=== PATIENT | female | born 1930 | race Caucasian/White ===

== ENCOUNTER 2019-12-14 10:16 | Observation (INO) ==
[2019-12-14] MEDS ORDERED: PANTOPRAZOLE 40 MG VIAL IV STA (10:33)
[2019-12-14 11:15] LABS: Basophils % 0.5 % (0.0-0.8); Eosinophils % 0.4 % (0.00-10.9); Hematocrit 33.3 VOL% (35.7-47.0); Hemoglobin 10.8 GM/DL (12.0-16.0); Immature Granulocytes % 0.4 %; Immature Granulocytes Absolute 0.03 #; Lymphocytes # 0.8 10*3/uL (1.4-4.0); Lymphocytes % 11.1 % (21.3-54.2); Mean Corpuscular HGB Conc 32.4 GM/DL (32-36); Mean Corpuscular Volume 90.7 FL (87-102); Mean Platelet Volume 11.4 FL (9.6-12.0); Monocytes % 6.7 % (1.7-12.7); Neutrophils % 80.9 % (38.7-73.9); Platelet Count 263 T/CUMM (130-400); Red Blood Count 3.67 MC/CUMM (3.8-5.5); Red Cell Distribution Width 12.7 % (9.3-17.3); White Blood Count 7.5 T/CUMM (4-12)
[2019-12-14 11:21] LABS: PT Patient Result 10.9 SECS (9.8-11.9)
[2019-12-14] MEDS ORDERED: LACTATED RINGERS 1,000 ML IV SCH (11:30)
[2019-12-14 11:55] LABS: Alanine Aminotransferase < 9 U/L (13-56); Albumin 3.6 G/DL (3.4-5.0); Alkaline Phosphatase 106 U/L (45-117); Aspartate Amino Transferase 12 U/L (0-37); Bilirubin,Total < 0.39 MG/DL (0.2-1.0); Blood Urea Nitrogen 29 MG/DL (7-18); Calcium 8.7 MG/DL (8.5-10.1); Estimated Glom Filtration Rate 38 ML/MIN; Glucose 95 MG/DL (74-106); Osmolality,Calculated 278.8 MOS/KG (273-304); Total Protein 6.7 G/DL (6.4-8.3)
[2019-12-14] MEDS ORDERED: DEXTROSE 50% 25 GM/50 ML VIAL IV PRN (12:05)
[2019-12-14] MEDS ORDERED: GLUCAGON 1 MG VIAL IM PRN (12:05)
[2019-12-14 15:07] LABS: Hematocrit 35.1 VOL% (35.7-47.0); Hemoglobin 11.2 GM/DL (12.0-16.0)
[2019-12-14] MEDS: SODIUM CHLORIDE 0.9% 1,000 ML IV SCH (15:29)
[2019-12-14 18:35] LABS: Hematocrit 32.3 VOL% (35.7-47.0); Hemoglobin 10.6 GM/DL (12.0-16.0)
[2019-12-14] MEDS: PANTOPRAZOLE 40 MG VIAL IV SCH (21:03)
[2019-12-15 00:40] LABS: Hematocrit 31.5 VOL% (35.7-47.0); Hemoglobin 10.1 GM/DL (12.0-16.0)
[2019-12-15 01:05] LABS: Calcium 8.2 MG/DL (8.5-10.1); Osmolality,Calculated 279.5 MOS/KG (273-304)
[2019-12-15 01:11] LABS: % Iron Saturation 11.2 % (18-50); Ferritin 20.4 ng/ml (8-252)
[2019-12-15] MEDS: traZODone 50 MG TABLET PO SCH ×2 (01:14→20:50)
[2019-12-15 05:50] LABS: Basophils % 0.6 % (0.0-0.8); Eosinophils # 0.1 10*3/uL (0.0-0.87); Eosinophils % 1.3 % (0.00-10.9); Hematocrit 31.7 VOL% (35.7-47.0); Immature Granulocytes % 0.2 %; Immature Granulocytes Absolute 0.01 #; Lymphocytes # 1.1 10*3/uL (1.4-4.0); Lymphocytes % 20.6 % (21.3-54.2); Mean Corpuscular HGB Conc 31.5 GM/DL (32-36); Mean Corpuscular Volume 91.9 FL (87-102); Mean Platelet Volume 11.2 FL (9.6-12.0); Monocytes % 7.8 % (1.7-12.7); Neutrophils % 69.5 % (38.7-73.9); Platelet Count 216 T/CUMM (130-400); Red Blood Count 3.45 MC/CUMM (3.8-5.5); Red Cell Distribution Width 12.8 % (9.3-17.3); White Blood Count 5.2 T/CUMM (4-12)
[2019-12-15] MEDS ORDERED: ALBUTEROL/IPRATROPIUM 3 ML NEB RESP TX PRN (07:11)
[2019-12-15] MEDS ORDERED: NITROGLYCERIN SL 0.4 MG TABLET SL PRN (07:11)
[2019-12-15 07:23] LABS: Hematocrit 33.8 VOL% (35.7-47.0); Hemoglobin 10.8 GM/DL (12.0-16.0)
[2019-12-15] MEDS: LEVOTHYROXINE 75 MCG TABLET PO SCH (07:34)
[2019-12-15] MEDS: PANTOPRAZOLE 40 MG VIAL IV SCH ×2 (09:21→20:53)
[2019-12-15] MEDS: SODIUM CHLORIDE 0.9% 1,000 ML IV SCH (10:29)
[2019-12-15] MEDS: gemfibroziL 600 MG TABLET PO SCH ×2 (12:00→20:50)
[2019-12-15] MEDS: CLORAZEPATE 3.75 MG TABLET PO SCH ×2 (12:00→20:49)
[2019-12-15] MEDS: amLODIPine 5 MG TABLET PO SCH (13:18)
[2019-12-15] MEDS: MAGNESIUM CHLORIDE 64 MG TABLET PO SCH (13:18)
[2019-12-15] MEDS: clonazePAM 0.5 MG TABLET PO SCH (20:49)
[2019-12-16 05:48] LABS: Basophils % 0.6 % (0.0-0.8); Eosinophils # 0.1 10*3/uL (0.0-0.87); Eosinophils % 1.8 % (0.00-10.9); Hematocrit 30.6 VOL% (35.7-47.0); Immature Granulocytes % 0.5 %; Immature Granulocytes Absolute 0.03 #; Lymphocytes # 1.1 10*3/uL (1.4-4.0); Lymphocytes % 17.8 % (21.3-54.2); Mean Corpuscular HGB Conc 32.7 GM/DL (32-36); Mean Corpuscular Volume 89.7 FL (87-102); Mean Platelet Volume 12.4 FL (9.6-12.0); Monocytes % 7.2 % (1.7-12.7); Neutrophils % 72.1 % (38.7-73.9); Platelet Count 213 T/CUMM (130-400); Red Blood Count 3.41 MC/CUMM (3.8-5.5); Red Cell Distribution Width 12.7 % (9.3-17.3); White Blood Count 6.2 T/CUMM (4-12)
[2019-12-16] MEDS: SODIUM CHLORIDE 0.9% 1,000 ML IV SCH (06:02)
[2019-12-16] MEDS: LEVOTHYROXINE 75 MCG TABLET PO SCH (06:03)
[2019-12-16] MEDS: amLODIPine 5 MG TABLET PO SCH (09:09)
[2019-12-16] MEDS: gemfibroziL 600 MG TABLET PO SCH ×3 (09:09→21:04)
[2019-12-16] MEDS: CLORAZEPATE 3.75 MG TABLET PO SCH ×2 (09:09→20:58)
[2019-12-16] MEDS: MAGNESIUM CHLORIDE 64 MG TABLET PO SCH (09:09)
[2019-12-16] MEDS: LIDOCAINE 5% PATCH TRANSDERM SCH (09:14)
[2019-12-16] MEDS: PANTOPRAZOLE 40 MG VIAL IV SCH ×2 (09:21→20:59)
[2019-12-16] MEDS: clonazePAM 0.5 MG TABLET PO SCH (20:58)
[2019-12-16] MEDS: traZODone 50 MG TABLET PO SCH (20:58)
[2019-12-17] MEDS: SODIUM CHLORIDE 0.9% 1,000 ML IV SCH ×2 (02:15→13:40)
[2019-12-17 06:09] LABS: Basophils % 0.7 % (0.0-0.8); Eosinophils # 0.2 10*3/uL (0.0-0.87); Eosinophils % 2.7 % (0.00-10.9); Hematocrit 31.6 VOL% (35.7-47.0); Hemoglobin 10.5 GM/DL (12.0-16.0); Immature Granulocytes % 0.3 %; Immature Granulocytes Absolute 0.02 #; Lymphocytes # 1.1 10*3/uL (1.4-4.0); Lymphocytes % 18.6 % (21.3-54.2); Mean Corpuscular HGB Conc 33.2 GM/DL (32-36); Mean Corpuscular Volume 89.8 FL (87-102); Mean Platelet Volume 11.9 FL (9.6-12.0); Monocytes % 6.3 % (1.7-12.7); Neutrophils % 71.4 % (38.7-73.9); Platelet Count 233 T/CUMM (130-400); Red Blood Count 3.52 MC/CUMM (3.8-5.5); Red Cell Distribution Width 12.8 % (9.3-17.3); White Blood Count 5.9 T/CUMM (4-12)
[2019-12-17] MEDS: LEVOTHYROXINE 75 MCG TABLET PO SCH (06:25)
[2019-12-17 06:42] LABS: Calcium 8.3 MG/DL (8.5-10.1); Osmolality,Calculated 281.1 MOS/KG (273-304)
[2019-12-17] MEDS: gemfibroziL 600 MG TABLET PO SCH ×2 (08:02→21:39)
[2019-12-17] MEDS: LIDOCAINE 5% PATCH TRANSDERM SCH (08:02)
[2019-12-17] MEDS: CLORAZEPATE 3.75 MG TABLET PO SCH ×2 (08:03→21:32)
[2019-12-17] MEDS: MAGNESIUM CHLORIDE 64 MG TABLET PO SCH (08:03)
[2019-12-17] MEDS: PANTOPRAZOLE 40 MG VIAL IV SCH ×2 (08:03→21:32)
[2019-12-17] MEDS: amLODIPine 5 MG TABLET PO SCH (08:03)
[2019-12-17] MEDS: clonazePAM 0.5 MG TABLET PO SCH (21:31)
[2019-12-17] MEDS: traZODone 50 MG TABLET PO SCH (21:32)
[2019-12-18] MEDS: SODIUM CHLORIDE 0.9% 1,000 ML IV SCH (01:31)
[2019-12-18 04:45] LABS: Basophils % 0.5 % (0.0-0.8); Eosinophils # 0.2 10*3/uL (0.0-0.87); Eosinophils % 2.1 % (0.00-10.9); Hemoglobin 10.7 GM/DL (12.0-16.0); Immature Granulocytes % 0.3 %; Immature Granulocytes Absolute 0.02 #; Lymphocytes # 1.3 10*3/uL (1.4-4.0); Lymphocytes % 16.2 % (21.3-54.2); Mean Corpuscular HGB Conc 33.4 GM/DL (32-36); Mean Corpuscular Volume 89.1 FL (87-102); Mean Platelet Volume 11.9 FL (9.6-12.0); Neutrophils % 74.9 % (38.7-73.9); Platelet Count 227 T/CUMM (130-400); Red Blood Count 3.59 MC/CUMM (3.8-5.5); Red Cell Distribution Width 12.8 % (9.3-17.3); White Blood Count 7.8 T/CUMM (4-12)
[2019-12-18 05:08] LABS: Calcium 8.3 MG/DL (8.5-10.1)
[2019-12-18] MEDS: LEVOTHYROXINE 75 MCG TABLET PO SCH (06:03)
[2019-12-18] MEDS: gemfibroziL 600 MG TABLET PO SCH (09:06)
[2019-12-18] MEDS: CLORAZEPATE 3.75 MG TABLET PO SCH (09:06)
[2019-12-18] MEDS: amLODIPine 5 MG TABLET PO SCH (09:06)
[2019-12-18] MEDS: MAGNESIUM CHLORIDE 64 MG TABLET PO SCH (09:07)
[2019-12-18] MEDS: PANTOPRAZOLE 40 MG VIAL IV SCH (09:07)
[2019-12-18] MEDS: LIDOCAINE 5% PATCH TRANSDERM SCH (09:07)
[2019-12-18 11:36] VITALS: BP 128/63
== END 2019-12-18 15:56 | disposition home or self-care (01) ==
LOC: N.EDINP 10:16 → N.ED 10:16 → SUATTDRO 12:05 → N.TELES 14:30
PROVIDERS: ADMIT Internal Medicine; ATTEND Internal Medicine

== ENCOUNTER 2020-10-06 14:12 | Inpatient (IN) ==
[2020-10-06] MEDS ORDERED: HYDROmorphone 2 MG/1 ML VIAL IV STA (14:34)
[2020-10-06] MEDS ORDERED: ONDANSETRON 4 MG/2 ML VIAL IV STA (14:34)
[2020-10-06 15:04] LABS: Basophils # 0.1 10*3/uL (0.0-0.2); Basophils % 0.3 % (0.0-0.8); Eosinophils % 0.1 % (0.00-10.9); Hematocrit 41.4 VOL% (35.7-47.0); Hemoglobin 13.4 GM/DL (12.0-16.0); Immature Granulocytes % 0.8 %; Immature Granulocytes Absolute 0.14 #; Lymphocytes # 0.4 10*3/uL (1.4-4.0); Lymphocytes % 2.4 % (21.3-54.2); Mean Corpuscular HGB Conc 32.4 GM/DL (32-36); Mean Platelet Volume 10.1 FL (9.6-12.0); Monocytes % 3.6 % (1.7-12.7); Neutrophils % 92.8 % (38.7-73.9); Platelet Count 240 T/CUMM (130-400); Red Blood Count 4.36 MC/CUMM (3.8-5.5); Red Cell Distribution Width 13.5 % (9.3-17.3)
[2020-10-06 15:19] LABS: Calcium 9.3 MG/DL (8.5-10.1); Osmolality,Calculated 283.4 MOS/KG (273-304); Potassium 4.3 MMOL/L (3.5-5.1)
[2020-10-06 16:11] LABS: Anisocytosis 1+; Lymphocytes 1 % (20-55); Macrocytosis 1+; Platelet Estimate Normal; Segmented Neutrophils 98 % (50-85); Total Cells Counted 100
[2020-10-06 16:12] LABS: Polychromasia Slight; Toxic Granulation 1+
[2020-10-06] MEDS ORDERED: ACETAMINOPHEN 325 MG TABLET PO PRN (18:35)
[2020-10-06] MEDS: LACTATED RINGERS 1,000 ML IV SCH (19:26)
[2020-10-06] MEDS: HYDROmorphone 2 MG/1 ML VIAL IV PRN (19:36)
[2020-10-07] MEDS: HYDROmorphone 2 MG/1 ML VIAL IV PRN ×2 (00:37→05:44)
[2020-10-07] MEDS: LACTATED RINGERS 1,000 ML IV SCH ×2 (05:44→15:08)
[2020-10-07] MEDS: ONDANSETRON 4 MG/2 ML VIAL IV PRN (06:03)
[2020-10-07 06:15] LABS: Basophils % 0.4 % (0.0-0.8); Eosinophils # 0.1 10*3/uL (0.0-0.87); Eosinophils % 0.6 % (0.00-10.9); Hemoglobin 11.6 GM/DL (12.0-16.0); Immature Granulocytes % 0.6 %; Immature Granulocytes Absolute 0.06 #; Lymphocytes % 10.5 % (21.3-54.2); Mean Corpuscular HGB Conc 32.2 GM/DL (32-36); Mean Platelet Volume 10.1 FL (9.6-12.0); Monocytes % 8.6 % (1.7-12.7); Neutrophils % 79.3 % (38.7-73.9); Platelet Count 215 T/CUMM (130-400); Red Blood Count 3.79 MC/CUMM (3.8-5.5); Red Cell Distribution Width 13.7 % (9.3-17.3); White Blood Count 9.8 T/CUMM (4-12)
[2020-10-07] MEDS: HEPARIN 5,000 UNIT/1 ML VIAL SUBCUT SCH ×3 (08:38→22:44)
[2020-10-07] MEDS ORDERED: PANTOPRAZOLE 40 MG TABLET PO SCH (09:00)
[2020-10-07] MEDS ORDERED: HYDROmorphone 2 MG/1 ML VIAL IV PRN (10:44)
[2020-10-07] MEDS ORDERED: NITROGLYCERIN SL 0.4 MG TABLET SL PRN (11:39)
[2020-10-07] MEDS ORDERED: ALBUTEROL/IPRATROPIUM 3 ML NEB RESP TX PRN (11:42)
[2020-10-07] MEDS: ALBUTEROL/IPRATROPIUM 3 ML NEB RESP TX SCH ×2 (14:06→20:03)
[2020-10-07] MEDS: DICLOFENAC 1% GEL 100 GM TUBE TOP SCH ×3 (15:08→21:37)
[2020-10-07] MEDS ORDERED: NALOXONE 0.4 MG/ML VIAL IV PRN (17:22)
[2020-10-07] MEDS: PANTOPRAZOLE 40 MG TABLET PO SCH (18:00)
[2020-10-07] MEDS: HYDROmorphone PCA 30 MG/30 ML SYRINGE IV SCH (20:17)
[2020-10-07] MEDS: POLYETHYLENE GLYCOL POWDER 17 GM PACK PO SCH (21:35)
[2020-10-07] MEDS: CARBIDOPA/LEVODOPA 25-100 MG TABLET PO SCH (21:35)
[2020-10-07] MEDS: ACETAMINOPHEN 325 MG TABLET PO SCH (21:36)
[2020-10-07] MEDS: clonazePAM 0.5 MG TABLET PO SCH (21:36)
[2020-10-07] MEDS: traMADol 50 MG TABLET PO PRN (21:36)
[2020-10-07] MEDS: GABAPENTIN 300 MG CAPSULE PO SCH (21:36)
[2020-10-08] MEDS: LACTATED RINGERS 1,000 ML IV SCH (01:37)
[2020-10-08] MEDS: ALBUTEROL/IPRATROPIUM 3 ML NEB RESP TX SCH ×4 (02:21→19:24)
[2020-10-08] MEDS: ACETAMINOPHEN 325 MG TABLET PO SCH ×4 (03:12→21:12)
[2020-10-08] MEDS: HEPARIN 5,000 UNIT/1 ML VIAL SUBCUT SCH ×3 (05:31→21:45)
[2020-10-08] MEDS: LEVOTHYROXINE 75 MCG TABLET PO SCH (06:31)
[2020-10-08] MEDS ORDERED: ROPIVACAINE 0.5% 30 ML VIAL MISC INJ ONE (09:32)
[2020-10-08] MEDS ORDERED: TRIAMCINOLONE ACETONIDE 40 MG/1 ML VIAL MISC INJ ONE (09:34)
[2020-10-08] MEDS: POTASSIUM CHLORIDE 10 MEQ TABLET PO SCH (09:51)
[2020-10-08] MEDS: GABAPENTIN 300 MG CAPSULE PO SCH ×2 (09:51→21:11)
[2020-10-08] MEDS: MAGNESIUM CHLORIDE 64 MG TABLET PO SCH (09:51)
[2020-10-08] MEDS: PANTOPRAZOLE 40 MG TABLET PO SCH ×2 (09:52→18:07)
[2020-10-08] MEDS: traMADol 50 MG TABLET PO PRN (09:52)
[2020-10-08] MEDS: CLORAZEPATE 3.75 MG TABLET PO PRN (09:52)
[2020-10-08] MEDS: amLODIPine 5 MG TABLET PO SCH (09:53)
[2020-10-08] MEDS: CARBIDOPA/LEVODOPA 25-100 MG TABLET PO SCH ×2 (10:30→21:12)
[2020-10-08] MEDS: DICLOFENAC 1% GEL 100 GM TUBE TOP SCH ×4 (10:30→21:12)
[2020-10-08] MEDS: ASPIRIN EC 81 MG TABLET PO SCH (10:31)
[2020-10-08] MEDS: ONDANSETRON 4 MG/2 ML VIAL IV PRN (13:54)
[2020-10-08] MEDS ORDERED: MAGNESIUM HYDROXIDE SUSP 30 ML UDCUP PO ONE (14:00)
[2020-10-08] MEDS: HYDROmorphone PCA 30 MG/30 ML SYRINGE IV SCH (19:03)
[2020-10-08] MEDS: POLYETHYLENE GLYCOL POWDER 17 GM PACK PO SCH (21:11)
[2020-10-08] MEDS: clonazePAM 0.5 MG TABLET PO SCH (21:12)
[2020-10-09] MEDS: ALBUTEROL/IPRATROPIUM 3 ML NEB RESP TX SCH ×4 (01:08→19:15)
[2020-10-09] MEDS: LACTATED RINGERS 1,000 ML IV SCH ×3 (01:29→06:49)
[2020-10-09] MEDS: ACETAMINOPHEN 325 MG TABLET PO SCH ×4 (03:16→20:52)
[2020-10-09] MEDS: LEVOTHYROXINE 75 MCG TABLET PO SCH (05:51)
[2020-10-09] MEDS: HEPARIN 5,000 UNIT/1 ML VIAL SUBCUT SCH ×3 (05:51→21:03)
[2020-10-09] MEDS ORDERED: BISACODYL 10 MG SUPP RECTAL ONE (08:03)
[2020-10-09] MEDS: amLODIPine 5 MG TABLET PO SCH (09:56)
[2020-10-09] MEDS: ASPIRIN EC 81 MG TABLET PO SCH (09:56)
[2020-10-09] MEDS: CARBIDOPA/LEVODOPA 25-100 MG TABLET PO SCH ×2 (09:56→20:52)
[2020-10-09] MEDS: MAGNESIUM CHLORIDE 64 MG TABLET PO SCH (09:56)
[2020-10-09] MEDS: POTASSIUM CHLORIDE 10 MEQ TABLET PO SCH (09:56)
[2020-10-09] MEDS: CLORAZEPATE 3.75 MG TABLET PO PRN (09:56)
[2020-10-09] MEDS: GABAPENTIN 300 MG CAPSULE PO SCH ×2 (09:56→20:51)
[2020-10-09] MEDS: PANTOPRAZOLE 40 MG TABLET PO SCH ×2 (09:56→16:49)
[2020-10-09] MEDS: DICLOFENAC 1% GEL 100 GM TUBE TOP SCH ×4 (09:57→20:52)
[2020-10-09] MEDS: POLYETHYLENE GLYCOL POWDER 17 GM PACK PO SCH (20:52)
[2020-10-09] MEDS: clonazePAM 0.5 MG TABLET PO SCH (20:52)
[2020-10-09] MEDS: traMADol 50 MG TABLET PO PRN (21:02)
[2020-10-10] MEDS: ALBUTEROL/IPRATROPIUM 3 ML NEB RESP TX SCH ×4 (00:08→19:42)
[2020-10-10] MEDS: ACETAMINOPHEN 325 MG TABLET PO SCH ×4 (03:40→21:08)
[2020-10-10] MEDS: HEPARIN 5,000 UNIT/1 ML VIAL SUBCUT SCH ×3 (06:22→21:10)
[2020-10-10] MEDS: LEVOTHYROXINE 75 MCG TABLET PO SCH (06:22)
[2020-10-10] MEDS ORDERED: ROPIVACAINE 0.5% 30 ML VIAL MISC INJ ONE (06:30)
[2020-10-10] MEDS ORDERED: TRIAMCINOLONE ACETONIDE 40 MG/1 ML VIAL MISC INJ ONE (06:30)
[2020-10-10] MEDS: HYDROmorphone PCA 30 MG/30 ML SYRINGE IV SCH (07:45)
[2020-10-10] MEDS: POTASSIUM CHLORIDE 10 MEQ TABLET PO SCH (09:18)
[2020-10-10] MEDS: MAGNESIUM CHLORIDE 64 MG TABLET PO SCH (09:18)
[2020-10-10] MEDS: PANTOPRAZOLE 40 MG TABLET PO SCH ×2 (09:18→16:36)
[2020-10-10] MEDS: ASPIRIN EC 81 MG TABLET PO SCH (09:18)
[2020-10-10] MEDS: amLODIPine 5 MG TABLET PO SCH (09:19)
[2020-10-10] MEDS: GABAPENTIN 300 MG CAPSULE PO SCH ×2 (09:19→21:09)
[2020-10-10] MEDS: DICLOFENAC 1% GEL 100 GM TUBE TOP SCH ×4 (09:20→21:10)
[2020-10-10] MEDS: CARBIDOPA/LEVODOPA 25-100 MG TABLET PO SCH ×2 (09:22→21:09)
[2020-10-10] MEDS: traMADol 50 MG TABLET PO PRN (09:24)
[2020-10-10] MEDS ORDERED: MAGNESIUM HYDROXIDE SUSP 30 ML UDCUP PO PRN (18:38)
[2020-10-10] MEDS: clonazePAM 0.5 MG TABLET PO SCH (21:08)
[2020-10-10] MEDS: POLYETHYLENE GLYCOL POWDER 17 GM PACK PO SCH (21:09)
[2020-10-11] MEDS: ACETAMINOPHEN 325 MG TABLET PO SCH ×5 (02:32→21:15)
[2020-10-11] MEDS: ALBUTEROL/IPRATROPIUM 3 ML NEB RESP TX SCH ×4 (02:43→20:05)
[2020-10-11] MEDS: HEPARIN 5,000 UNIT/1 ML VIAL SUBCUT SCH ×3 (05:47→21:16)
[2020-10-11] MEDS: LEVOTHYROXINE 75 MCG TABLET PO SCH (05:47)
[2020-10-11] MEDS: MAGNESIUM CHLORIDE 64 MG TABLET PO SCH ×2 (08:38→08:53)
[2020-10-11] MEDS: ASPIRIN EC 81 MG TABLET PO SCH ×2 (08:38→08:52)
[2020-10-11] MEDS: amLODIPine 5 MG TABLET PO SCH ×2 (08:38→08:53)
[2020-10-11] MEDS: CARBIDOPA/LEVODOPA 25-100 MG TABLET PO SCH ×3 (08:38→21:15)
[2020-10-11] MEDS: POTASSIUM CHLORIDE 10 MEQ TABLET PO SCH ×2 (08:38→08:54)
[2020-10-11] MEDS: PANTOPRAZOLE 40 MG TABLET PO SCH ×2 (08:39→16:03)
[2020-10-11] MEDS: GABAPENTIN 300 MG CAPSULE PO SCH ×3 (08:39→21:14)
[2020-10-11] MEDS: traMADol 50 MG TABLET PO PRN ×2 (08:39→21:15)
[2020-10-11] MEDS: DICLOFENAC 1% GEL 100 GM TUBE TOP SCH ×4 (08:53→21:16)
[2020-10-11] MEDS: HYDROmorphone 2 MG/1 ML VIAL IV PRN (14:35)
[2020-10-11] MEDS: clonazePAM 0.5 MG TABLET PO SCH (21:15)
[2020-10-11] MEDS: POLYETHYLENE GLYCOL POWDER 17 GM PACK PO SCH (21:16)
[2020-10-12] MEDS: ALBUTEROL/IPRATROPIUM 3 ML NEB RESP TX SCH ×4 (01:00→21:14)
[2020-10-12] MEDS: HYDROmorphone 2 MG/1 ML VIAL IV PRN ×3 (03:32→15:42)
[2020-10-12] MEDS: ACETAMINOPHEN 325 MG TABLET PO SCH ×4 (03:32→20:30)
[2020-10-12] MEDS: HEPARIN 5,000 UNIT/1 ML VIAL SUBCUT SCH ×3 (06:21→21:21)
[2020-10-12] MEDS: LEVOTHYROXINE 75 MCG TABLET PO SCH (06:21)
[2020-10-12] MEDS: PANTOPRAZOLE 40 MG TABLET PO SCH ×3 (08:49→16:01)
[2020-10-12] MEDS: GABAPENTIN 300 MG CAPSULE PO SCH ×2 (08:50→20:29)
[2020-10-12] MEDS: POTASSIUM CHLORIDE 10 MEQ TABLET PO SCH (08:50)
[2020-10-12] MEDS: MAGNESIUM CHLORIDE 64 MG TABLET PO SCH (08:50)
[2020-10-12] MEDS: CARBIDOPA/LEVODOPA 25-100 MG TABLET PO SCH ×2 (08:50→20:29)
[2020-10-12] MEDS: ASPIRIN EC 81 MG TABLET PO SCH (08:50)
[2020-10-12] MEDS: DICLOFENAC 1% GEL 100 GM TUBE TOP SCH ×4 (08:50→20:31)
[2020-10-12] MEDS: amLODIPine 5 MG TABLET PO SCH (08:50)
[2020-10-12] MEDS: traMADol 50 MG TABLET PO PRN ×2 (11:40→20:30)
[2020-10-12] MEDS: clonazePAM 0.5 MG TABLET PO SCH (20:29)
[2020-10-12] MEDS: POLYETHYLENE GLYCOL POWDER 17 GM PACK PO SCH (20:30)
[2020-10-13] MEDS: ALBUTEROL/IPRATROPIUM 3 ML NEB RESP TX SCH ×3 (03:07→12:52)
[2020-10-13] MEDS: ACETAMINOPHEN 325 MG TABLET PO SCH ×3 (03:30→14:31)
[2020-10-13] MEDS: HEPARIN 5,000 UNIT/1 ML VIAL SUBCUT SCH ×2 (05:47→14:29)
[2020-10-13] MEDS: LEVOTHYROXINE 75 MCG TABLET PO SCH (05:47)
[2020-10-13] MEDS: GABAPENTIN 300 MG CAPSULE PO SCH (08:06)
[2020-10-13] MEDS: ASPIRIN EC 81 MG TABLET PO SCH (08:06)
[2020-10-13] MEDS: PANTOPRAZOLE 40 MG TABLET PO SCH ×2 (08:06→16:45)
[2020-10-13] MEDS: traMADol 50 MG TABLET PO PRN (08:06)
[2020-10-13] MEDS: amLODIPine 5 MG TABLET PO SCH (08:06)
[2020-10-13] MEDS: MAGNESIUM CHLORIDE 64 MG TABLET PO SCH (08:07)
[2020-10-13] MEDS: CARBIDOPA/LEVODOPA 25-100 MG TABLET PO SCH (08:07)
[2020-10-13] MEDS: POTASSIUM CHLORIDE 10 MEQ TABLET PO SCH (08:07)
[2020-10-13] MEDS: DICLOFENAC 1% GEL 100 GM TUBE TOP SCH ×3 (08:07→16:45)
[2020-10-13 11:02] VITALS: BP 133/58
== END 2020-10-13 17:00 | disposition swing bed (61) | DRG 199 ==
LOC: EDBD → EDUNIT# → N.EDINP 14:12 → N.ED 14:12 → N.EDINP 18:21 → N.3E 18:31
PROVIDERS: ADMIT Student in an Organized Health Care Education/Training Program; ATTEND Student in an Organized Health Care Education/Training Program